=== PATIENT | male | born 1985 | race Caucasian/White ===

== ENCOUNTER 2017-10-07 09:47 | Emergency (ER) | payer OTHER, SELFPAY ==
--- NOTE | 2017-10-07 11:17 | EDPHYS ---
Physician Documentation [facility] Name: Abrahan Guaman Age: 32 yrs Sex: Male : 1985 Arrival Date: 10/07/2017 Time: 09:48 Bed 25 Private MD: ED Physician Stanley Nichole HPI: 10/07 11:11 This 32 yrs old Male presents to ER via Ambulatory with complaints of Chest rn Pain, Anxiety. 11:11 The patient or guardian reports chest pain that is located primarily in the substernal rn area. The pain does not radiate. The chest pain is described as a heaviness. Duration: The patient or guardian reports multiple episodes, that are intermittent, the episodes last approximately 30 second(s). Severity of pain: At its worst the pain was moderate in the emergency department the pain has resolved. The patient has experienced similar episodes in the past. Reports started new job recently, very stressful, has been having intermittent episodes of chest pain, trouble breathing, tingling in extremities, very brief, last about 30 seconds, no radiation, no syncope. No drug use. No current pain. Today couldn't catch his breath.. Historical: - Allergies: 10:02 No Known Allergies; lk1 - PMHx: 10:02 Anxiety; lk1 - PSHx: 10:02 Appendectomy; lk1 - Immunization history:: Adult Immunizations up to date. - Social history:: Smoking status: Patient/guardian denies using tobacco. - Family history:: not pertinent. - Hospitalizations: : No recent hospitalization is reported. ROS: 11:11 Constitutional: Negative for fever, chills, and weight loss, Eyes: Negative for injury, rn pain, redness, and discharge, Neck: Negative for injury, pain, and swelling, Cardiovascular: Negative for edema, Respiratory: Negative for cough, wheezing, and pleuritic chest pain, Abdomen/GI: Negative for abdominal pain, nausea, vomiting, diarrhea, and constipation, Back: Negative for injury and pain, MS/Extremity: Negative for injury and deformity, Skin: Negative for injury, rash, and discoloration, Neuro: Negative for headache, weakness, and seizure, Psych: Negative for depression, suicide ideation, homicidal ideation, and hallucinations. Exam: 11:11 Constitutional: This is a well developed, well nourished patient who is awake, alert, rn and in no acute distress. Head/Face: Normocephalic, atraumatic. Eyes: Pupils equal round and reactive to light, extra-ocular motions intact. Lids and lashes normal. Conjunctiva and sclera are non-icteric and not injected. Cornea within normal limits. Periorbital areas with no swelling, redness, or edema. Cardiovascular: Regular rate and rhythm with a normal S1 and S2. No gallops, murmurs, or rubs. Normal PMI, no JVD. No pulse deficits. Respiratory: Lungs have equal breath sounds bilaterally, clear to auscultation and percussion. No rales, rhonchi or wheezes noted. No increased work of breathing, no retractions or nasal flaring. Abdomen/GI: Soft, non-tender, with normal bowel sounds. No distension or tympany. No guarding or rebound. No evidence of tenderness throughout. MS/ Extremity: Pulses equal, no cyanosis. Neurovascular intact. Full, normal range of motion. Equal circumference. Neuro: Awake and alert, GCS 15, oriented to person, place, time, and situation. Cranial nerves II-XII grossly intact. Motor strength 5/5 in all extremities. Sensory grossly intact. Cerebellar exam normal. Normal gait. Psych: Awake, alert, with orientation to person, place and time. Behavior, mood, and affect are within normal limits. 11:11 ECG was reviewed by the Attending Physician. rn Vital Signs: 10:03 BP 161 / 106; Pulse 107; Resp 18; Temp 98.2(TE); Pulse Ox 97% on R/A; Weight 113.4 kg lk1 (R); Height 5 ft. 11 in. (180.34 cm) (R); Pain 0/10; 11:19 BP 158 / 93; Pulse 100; Resp 19; Temp 97.5; Pulse Ox 100% on R/A; la1 10:03 Body Mass Index 34.87 (113.40 kg, 180.34 cm) lk1 MDM: 10:50 Patient medically screened. rn 11:11 Differential diagnosis: anxiety, stress related disorder, palpitations, irregular heart rn rhythm. 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 Counseling: I had a detailed discussion with the patient and/or guardian regarding: the historical points, exam findings, and any diagnostic results supporting the discharge/admit diagnosis, the need for outpatient follow up, to return to the emergency department if symptoms worsen or persist or if there are any questions or concerns that arise at home. Special discussion: Based on the patient's history, exam, and Dx evaluation, there is no indication for emergent intervention or inpatient Tx. It is understood by the patient/guardian that if the Sx's persist or worsen they need to return immediately for re-evaluation. I discussed with the patient/guardian in detail that at this point there is no indication for admission to the hospital. It is understood, however, that if the symptoms persist or worsen the patient needs to return immediately for re-evaluation. ED course: Pt's story most consistent with anxiety/hyperventilation in setting of stressful job, asymptomatic currently, also having trouble sleeping, only getting 2-3 hours/night, I recommended melatonin for now, and will prescribe antidepressant with pcp f/u, told him is symptoms worsen, to get with pcp/cardiology for holter. . 10/07 11:10 Order name: EKG; Complete Time: 11:11 rn 10/07 11:10 Order name: EKG - Nurse/Tech; Complete Time: 11:15 rn EC:11 Rate is 109 beats/min. Rhythm is regular. QRS [place] is Normal. [place] interval is normal. rn QRS interval is normal. QT interval is normal. No Q waves. T waves are Normal. No ST changes noted. Clinical impression: Normal ECG. Interpreted by me. Administered Medications: No medications were administered Disposition: 10/07/17 11:16 Discharged to Home. Impression: Acute stress reaction, Hyperventilation. - Condition is Stable. - Discharge Instructions: Hyperventilation, Generalized Anxiety Disorder. - Prescriptions for Celexa 20 mg Oral Tablet - take 1 tablet by ORAL route once daily; 60 tablet. - Medication Reconciliation Form, Thank You Letter, Antibiotic Education, Prescription Opioid Use, Work release form form. - Follow up: Private Physician; When: As needed; Reason: Recheck today's complaints, Re-evaluation by your physician. - Problem is an ongoing problem. - Symptoms have improved. Signatures: Stanley Nichole MD MD rn Attema, Lee, RN RN la1 Ruthie Ramirez RN RN lk1 Corrections: (The following items were deleted from the chart) 11:13 11:11 Constitutional: Negative for fever, chills, and weight loss, Eyes: Negative for rn injury, pain, redness, and discharge, Neck: Negative for injury, pain, and swelling, Cardiovascular: Negative for edema, Respiratory: Negative for shortness of breath, cough, wheezing, and pleuritic chest pain, Abdomen/GI: Negative for abdominal pain, nausea, vomiting, diarrhea, and constipation, Back: Negative for injury and pain, MS/Extremity: Negative for injury and deformity, Skin: Negative for injury, rash, and discoloration, Neuro: Negative for headache, weakness, and seizure, Psych: Negative for depression, suicide ideation, homicidal ideation, and hallucinations, rn
--- NOTE | 2017-10-07 11:17 | ER ---
Nurse's Notes [facility] Name: Abrahan Guaman Age: 32 yrs Sex: Male : 1985 Arrival Date: 10/07/2017 Time: 09:48 Bed 25 Private MD: Diagnosis: Acute stress reaction;Hyperventilation Presentation: 10/07 10:00 Presenting complaint: Patient states: "This morning I am having trouble calming down lk1 and can't get a deep breath. I had really bad chest pains. It has happened before, but it was bad this morning. I have had digestive issues for a few months.". Transition of care: patient was not received from another setting of care. Onset of symptoms is unknown. Care prior to arrival: None. 10:00 Method Of Arrival: Ambulatory lk1 10:00 Acuity: ANETTE 3 lk1 Triage Assessment: 10:02 General: Appears uncomfortable, Behavior is appropriate for age, anxious. Pain: Denies lk1 pain. Unable to use pain scale. states pain was in sternum, was 8/10 lasting only a few seconds, was non- radiating. Cardiovascular: Capillary refill is brisk Patient's skin is warm and dry. Historical: - Allergies: 10:02 No Known Allergies; lk1 - PMHx: 10:02 Anxiety; lk1 - PSHx: 10:02 Appendectomy; lk1 - Immunization history:: Adult Immunizations up to date. - Social history:: Smoking status: Patient/guardian denies using tobacco. - Family history:: not pertinent. - Hospitalizations: : No recent hospitalization is reported. Screenin:15 Abuse screen: Denies threats or abuse. Nutritional screening: No deficits noted. la1 Tuberculosis screening: No symptoms or risk factors identified. Fall Risk None identified. Assessment: 11:15 Reassessment: Patient is alert, oriented x 3, equal unlabored respirations, skin la1 warm/dry/pink. General: Appears in no apparent distress. Behavior is anxious. Pain: Denies pain. Neuro: Level of Consciousness is awake, alert, obeys commands, Oriented to person, place, time, situation. Cardiovascular: Capillary refill < 3 seconds Patient's skin is warm and dry. Respiratory: Airway is patent Respiratory effort is even, unlabored, Respiratory pattern is regular, symmetrical, Breath sounds are clear bilaterally. GI: No signs and/or symptoms were reported involving the gastrointestinal system. : No signs and/or symptoms were reported regarding the genitourinary system. Vital Signs: 10:03 BP 161 / 106; Pulse 107; Resp 18; Temp 98.2(TE); Pulse Ox 97% on R/A; Weight 113.4 kg lk1 (R); Height 5 ft. 11 in. (180.34 cm) (R); Pain 0/10; 11:19 BP 158 / 93; Pulse 100; Resp 19; Temp 97.5; Pulse Ox 100% on R/A; la1 10:03 Body Mass Index 34.87 (113.40 kg, 180.34 cm) lk1 ED Course: 09:48 Patient arrived in ED. as 10:02 Triage completed. lk1 10:09 Arm band placed on right wrist. lk1 10:25 EKG done, by technical services coordinator. reviewed by Logan Grayson MD. tc 10:50 Stanley Nichole MD is Attending Physician. rn 10:57 Alhaji Bell RN is Primary Nurse. la1 11:15 Placed in gown. Bed in low position. Pulse ox on. NIBP on. la1 11:16 No provider procedures requiring assistance completed. Patient did not have IV access la1 during this emergency room visit. Patient maintains SpO2 saturation greater than 95% on room air. Administered Medications: No medications were administered Outcome: 11:16 Discharge ordered by . rn 11:23 Discharged to home ambulatory. la1 11:23 Condition: stable 11:23 Discharge instructions given to patient, Instructed on discharge instructions, follow up and referral plans. medication usage, Demonstrated understanding of instructions, follow-up care, medications, Prescriptions given X 1. 11:24 Patient left the ED. la1 Signatures: Alla Sultana Roman, MD MD rn Callis, Tiffany, technical adjuster EKG Ttc Alhaji Bell RN RN la1 Ruthie Ramirez RN RN lk1
--- NOTE | 2017-10-07 12:10 | EKG ---
Test Date: 2017-10-07 Test Time: 10:04:07 [employer]ed Circuit [employer] Designer: EDD MEASUREMENT RESULTS: Intervals: Rate: 109 CA: 148 QRSD: 94 QT: 338 QTc: 455 [place]: P: 34 CA: 148 QRS: 20 T: 23 INTERPRETIVE STATEMENTS: Sinus tachycardia Septal infarct, age undetermined Abnormal ECG No previous ECG available for comparison Electronically Signed On 10-07-17 12:09:33 CDT by Ferdinand Zazueta
== END 2017-10-07 11:24 | disposition home or self-care (01) ==
LOC: ER 09:47
DX: R06.4 Hyperventilation (principal); F43.0 Acute stress reaction
CPT/HCPCS: 93005; 99284